=== PATIENT | female | born 1990 | race Caucasian/White ===

== ENCOUNTER 2024-07-13 11:32 | Emergency (ER) | payer BC, OTHER | END 2024-07-13 13:39 | disposition home or self-care (01) | LOC: CSHERS 11:32 | DX: O03.9 Complete or unspecified spontaneous abortion without complication (principal) | CPT/HCPCS: 36415; 86900; 86901; 90384; 96372; 99284 ==

== ENCOUNTER 2025-02-20 23:13 | Emergency (ER) | payer BC, OTHER ==
[2025-02-21] MEDS ORDERED: Ketorolac Tromethamine 30 MG (1 mL) VIAL ONE (00:14)
[2025-02-21] MEDS ORDERED: Acetaminophen 325 MG TAB ONE (00:14)
[2025-02-21 01:39] LABS: Pregnancy Test - Urine (BHCG) Negative (Negative); Pregu Control Background? CLEAR/WHITE (CLR/WHITE); Pregu Control Bar Appear? YES (CONTROL BAR)
== END 2025-02-21 02:08 | disposition home or self-care (01) ==
LOC: CSHERS 23:13
DX: U07.1 COVID-19 (principal)
CPT/HCPCS: 71045; 81025; 87428; 96374; J1885